=== PATIENT | male | born 1980 | race African-American/Black ===

== ENCOUNTER 2016-12-24 21:22 | Emergency (ER) | payer SELFPAY ==
[~2016-12-24] VITALS: Ht 182.9 cm; Wt 115.0 kg
[2016-12-24 21:28] VITALS: BP 136/94; PULSE 98; RESP 16; TEMP 98.5; O2SAT 97
--- NOTE | 2016-12-24 21:59 | PD ---
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 States he felt lightheaded while standing but states he felt better after lying down. Denies any fever, chest pain, sob, n/v, abdominal pain, focal weakness or numbness. Pt is interested in going to detox for heroin. He also does cocaine at times but denies any cocaine use today. PFSH Past Medical History Hypertension: Yes Influenza Vaccination: No Past Surgical History Other Surgery: Yes (ACL REPAIR ) Social History Alcohol Use: Yes (OCCA) Tobacco Use: Yes (1 PPD ) Substance Use: Yes (COCAINE, HEROIN, MARIJUANA ) Allergies-Medications (Allergen,Severity, Reaction): Coded Allergies: No Known Allergies (Unverified , 12/24/16) Reported Meds & Prescriptions Reported Meds & Active Scripts Active No Active Prescriptions or Reported Medications Review of Systems Except as stated in HPI: all other systems reviewed are Neg Physical Exam Narrative GENERAL: 36yo M not in distress. SKIN: Focused skin assessment warm/dry. NECK: Trachea midline. No JVD. CARDIOVASCULAR: Regular rate and rhythm. No murmur appreciated. RESPIRATORY: No accessory muscle use. Clear to auscultation. Breath sounds equal bilaterally. GASTROINTESTINAL: Abdomen soft, non-tender, nondistended. No rebound tenderness or guarding. MUSCULOSKELETAL: No obvious deformities. No clubbing. No cyanosis. No edema. NEUROLOGICAL: Awake and alert. No obvious cranial nerve deficits. Motor grossly within normal limits. Normal speech. PSYCHIATRIC: Appropriate mood and affect; insight and judgment normal. Data Data Last Documented VS Vital Signs Date Time Temp Pulse Resp B/P Pulse Ox O2 Delivery O2 Flow Rate FiO2 12/24/16 21:28 98.5 98 16 136/94 97 Orders Electrocardiogram (12/24/16 ) Complete Blood Count With Diff (12/24/16 21:37) Basic Metabolic Panel (Bmp) (12/24/16 21:37) Thyroid Stimulating Hormone (12/24/16 21:37) Potassium Chloride (Kcl) (12/25/16 00:00) Labs Laboratory Tests Test 12/24/16 21:50 Sodium Level 138 MEQ/L Potassium Level 2.9 MEQ/L Chloride Level 100 MEQ/L Carbon Dioxide Level 25.1 MEQ/L Anion Gap 13 MEQ/L Blood Urea Nitrogen 16 MG/DL Creatinine 2.22 MG/DL Estimat Glomerular Filtration 41 ML/MIN Rate Random Glucose 156 MG/DL Calcium Level 8.9 MG/DL Thyroid Stimulating Hormone 0.728 uIU/ML 3rd Gen White Blood Count 7.6 TH/MM3 Red Blood Count 5.93 MIL/MM3 Hemoglobin 14.5 GM/DL Hematocrit 44.1 % Mean Corpuscular Volume 74.3 FL Mean Corpuscular Hemoglobin 24.4 PG Mean Corpuscular Hemoglobin 32.8 % Concent Red Cell Distribution Width 15.0 % Platelet Count 282 TH/MM3 Mean Platelet Volume 9.4 FL Neutrophils (%) (Auto) 54.0 % Lymphocytes (%) (Auto) 32.5 % Monocytes (%) (Auto) 10.8 % Eosinophils (%) (Auto) 1.6 % Basophils (%) (Auto) 1.1 % Neutrophils # (Auto) 4.1 TH/MM3 Lymphocytes # (Auto) 2.5 TH/MM3 Monocytes # (Auto) 0.8 TH/MM3 Eosinophils # (Auto) 0.1 TH/MM3 Basophils # (Auto) 0.1 TH/MM3 CBC Comment AUTO DIFF Differential Comment AUTO DIFF CONFIRMED MDM Medical Decision Making Medical Screen Exam Complete: Yes Emergency Medical Condition: Yes Interpretation(s) EKG: NSR 92bpm. Normal axis. TWI aVF. Differential Diagnosis Anxiety vs. opioid withdrawal vs. vasovagal near syncope vs. dehydration vs electrolyte abnormality Narrative Course 36yo M with palpitations. Labs reviewed, no leukocytosis. K: 2.9, replaced orally with KCl 60mEq. Pt tolerating PO. TSH normal. Creatinine elevated, no prior to compare. Pt has HTN. Instructed pt to follow up with PMD. Pt feels well and is well appearing. Wants to go home. Return precautions given. I gave him information regarding outpatient detox. Diagnosis Primary Impression: Hypokalemia Patient Instructions: General Instructions Departure Forms: Tests/Procedures Additional Instructions: Please follow up with your PMD regarding elevated creatinine 2.22. Med/Other Pt SpecificInfo: No Change to Meds Scripts No Active Prescriptions or Reported Meds Disposition: DISCHARGE HOME Condition: Stable Ayala Mckeon DO Dec 24, 2016 21:59
[2016-12-24 22:17] LABS: AUTOMATED NEUTROPHIL # 4.1 TH/MM3 (1.8-7.7); BASOPHIL # 0.1 TH/MM3 (0-0.2); BASOPHIL % 1.1 % (0.0-2.0); EOSINOPHIL # 0.1 TH/MM3 (0-0.4); EOSINOPHIL % 1.6 % (0.0-4.0); HEMATOCRIT 44.1 % (39.0-51.0); LYMPH % 32.5 % (9.0-44.0); LYMPHOCYTE # 2.5 TH/MM3 (1.0-4.8); MEAN CELL VOLUME 74.3 FL (80.0-100.0); MEAN CORPUSCULAR HEMOGLOBIN 24.4 PG (27.0-34.0); MEAN CORPUSCULAR HGB CONC 32.8 % (32.0-36.0); MONO % 10.8 % (0.0-8.0); PLATELET COUNT 282 TH/MM3 (150-450); RED BLOOD COUNT 5.93 MIL/MM3 (4.50-5.90); WHITE BLOOD COUNT 7.6 TH/MM3 (4.0-11.0)
[2016-12-24 22:24] LABS: HEMO FLAGS AUTO DIFF
[2016-12-24 22:50] LABS: BICARBONATE 25.1 MEQ/L (21.0-32.0)
[2016-12-24 22:52] LABS: POTASSIUM 2.9 MEQ/L (3.5-5.1)
[2016-12-25] MEDS ORDERED: POTASSIUM CHLORIDE 20 MEQ CONTROLLED RELEASE TAB PO ONE
[2016-12-25 00:30] LABS: SCAN/DIFF AUTO DIFF CONFIRMED
--- NOTE | 2016-12-26 21:23 | EKG ---
Date Performed: 12/24/2016 Time Performed: 22:03:09 PTAGE: 36 years EKG: Sinus rhythm POSSIBLE LEFT ATRIAL ENLARGEMENT NONSPECIFIC T-WAVE ABNORMALITY BORDERLINE ECG NO PREVIOUS TRACING DOCTOR: Kevin Duran Interpretating Date/Time 12/26/2016 21:21:11
== END 2016-12-25 01:56 | disposition home or self-care (01) ==
LOC: NEPE 21:22
DX: E87.6 Hypokalemia (principal); I10 Essential (primary) hypertension; R94.31 Abnormal electrocardiogram [ECG] [EKG]; F17.210 Nicotine dependence, cigarettes, uncomplicated; F11.90 Opioid use, unspecified, uncomplicated; F12.90 Cannabis use, unspecified, uncomplicated; F14.90 Cocaine use, unspecified, uncomplicated
CPT/HCPCS: 80048; 84443; 85025; 93005